=== PATIENT | female | born 1950 | race African-American/Black ===

== ENCOUNTER 2016-09-22 16:33 | Emergency (ER) | payer OTHER ==
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
== END 2016-09-22 16:35 | disposition home or self-care (01) ==
LOC: CED 16:33
DX: S39.012A Strain of muscle, fascia and tendon of lower back, initial encounter (principal); I10 Essential (primary) hypertension; F17.210 Nicotine dependence, cigarettes, uncomplicated; Z88.6 Allergy status to analgesic agent; V43.52XA Car driver injured in collision with other type car in traffic accident, initial encounter
CPT/HCPCS: 72100; 99283